=== PATIENT | male | born 2000 | race Caucasian/White ===

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

== ENCOUNTER 2019-03-17 23:27 | Emergency (ER) | payer MEDICAID ==
--- NOTE | 2019-03-17 23:59 | C.PDOC ---
History Of Present Illness Patient with PMHx of cerebral palsy, patient is non verbal, is brought to the ED by web services professional for evaluation of 3-4 episodes of watery diarrhea. Application Packaging Consultant reports symptoms started after patient was started on Amoxicillin and Bactrim for a pressure ulcer on his back. Application Packaging Consultant denies fever, chills, vomit, sick contacts, cough, SOB. Time Seen by Provider: 03/17/19 23:58 Chief Complaint (Nursing): GI Problem History Per: Family History/Exam Limitations: clinical condition Onset/Duration Of Symptoms: Days Current Symptoms Are (Timing): Still Present Recent travel outside of the [place]: No Additional History Per: Family Past Medical History Reviewed: Historical Data, Nursing Documentation, Vital Signs Vital Signs: Last Vital Signs Temp 98.2 F 03/17/19 23:48 Pulse 78 03/17/19 23:48 Resp 18 03/17/19 23:48 BP 90/50 L 03/17/19 23:48 Pulse Ox 98 03/17/19 23:48 Primary Care Provider: Jori Mckeon - Medical History PMH: Pneumonia, Seizures Surgical History: No Surg Hx - [facility] Procedures INSERTION OF FEEDING DEVICE INTO STOMACH, PERC APPROACH (11/08/17) INSERTION OF INFUSION DEV INTO R SUBCLAV VEIN, PERC APPROACH (11/08/17) INSPECTION OF UPPER INTESTINAL TRACT, ENDO (11/08/17) Family History: States: Unknown Family Hx - Social History Hx Alcohol Use: No Hx Substance Use: No - Immunization History Hx Tetanus Toxoid Vaccination: Yes Hx Influenza Vaccination: Yes Hx Pneumococcal Vaccination: No Review Of Systems Review Of Systems: ROS cannot be obtained secondary to pt's inabilty to answer questions. Physical Exam - Physical Exam Appears: Non-toxic Skin: Warm, Dry, Other (3x6 cm stage 1 decubitus ulcer sacral area) Head: Atraumatic, Normacephalic Eye(s): bilateral: Normal Inspection Oral Mucosa: Moist Neck: Supple Chest: Symmetrical Cardiovascular: Rhythm Regular Respiratory: No Rales, No Rhonchi, No Wheezing Gastrointestinal/Abdominal: Soft, No Tenderness Extremity: Bilateral: Other (lower extremities contracted, upper extremities consistent with clinical condition) Neurological/Psych: Other (Non verbal due to clinical condition) Gait: With Assistance ED Course And Treatment - Laboratory Results Result Diagrams: 03/18/19 01:43 03/18/19 01:43 O2 Sat by Pulse Oximetry: 98 (ON RA) Pulse Ox Interpretation: Normal Progress Note: Plan: - Labs Reevaluation Time: 02:52 Reassessment Condition: Improved Disposition Counseled Patient/Family Regarding: Studies Performed, Diagnosis, Need For Followup, Rx Given - Disposition Referrals: Jori Mckeon MD [Medical Doctor] - Disposition: HOME/ ROUTINE Disposition Time: 23:59 Condition: FAIR Additional Instructions: Por favor regrese si los sntomas recurren. Detener la amoxicilina. Tambin se puede utilizar kaopectate para la diarrea. Prescriptions: Cephalexin [cephalexin] 500 mg PO TID #21 cap Instructions: Antibiotic-Associated Diarrhea (DC) Forms: [employer] (Telugu) Print Language: KAZAKH - Clinical Impression Clinical Impression: Antibiotic-associated diarrhea - Scribe Statement The provider has reviewed the documentation as recorded by the Scribe Enzo Pérez All medical record entries made by the Scribe were at my direction and personally dictated by me. I have reviewed the chart and agree that the record accurately reflects my personal performance of the history, physical exam, medical decision making, and the department course for this patient. I have also personally directed, reviewed, and agree with the discharge instructions and disposition.
[2019-03-18 01:54] LABS: BASO % 0.3 % (0.0-2.0); EOS # 0.1 K/uL (0.0-0.7); EOS % 1.6 % (0.0-4.0); HEMOGLOBIN 14.3 g/dL (12.0-18.0); LYMPH # 2.6 K/uL (1.0-4.3); LYMPH % 49.8 % (20.0-40.0); MEAN CELL VOLUME 94.2 fL (80.0-94.0); MEAN PLATELET VOLUME 10.9 fL (7.2-11.7); MONO # 0.4 K/uL (0.0-0.8); NEUT # 2.1 K/uL (1.8-7.0); NEUT % 40.3 % (50.0-75.0); NRBC % 0.2 % (0.0-2.0); RBC 4.48 Mil/uL (4.40-5.90); RED CELL DISTRIBUTION WIDTH 14.9 % (11.5-14.5); WHITE BLOOD COUNT 5.3 K/uL (4.8-10.8)
[2019-03-18 02:05] LABS: ALBUMIN 3.8 g/dL (3.5-5.0); BLOOD UREA NITROGEN 19 mg/dL (9-20); CALCIUM 9.3 mg/dl (8.6-10.4); GFR NON-AFRICAN AMERICAN > 60
[2019-03-18 02:07] LABS: ALT/SGPT 89 U/L (21-72); AST/SGOT 96 U/L (17-59)
[2019-03-18 03:37] VITALS: RESP 16
[2019-03-18 07:33] VITALS: BP 90/57; PULSE 53; TEMP 97.6; O2SAT 96
== END 2019-03-18 08:57 | disposition home or self-care (01) ==
LOC: C.ER 23:27
DX: K52.1 Toxic gastroenteritis and colitis (principal); T36.0X5A Adverse effect of penicillins, initial encounter; T37.0X5A Adverse effect of sulfonamides, initial encounter